=== PATIENT | female | born 1980 | race African-American/Black ===

== ENCOUNTER → 2020-09-28 02:05 | Outpatient (CLI) | payer OTHER, SELFPAY ==
[2020-09-28 20:22] LABS: SARS-CoV-2 RNA PCR Negative
== END ==
PROVIDERS: PCP Family Medicine; Visit Provider Internal Medicine Gastroenterology
DX: Z01.812 Encounter for preprocedural laboratory examination (principal); Z20.822 Contact with and (suspected) exposure to COVID-19
CPT/HCPCS: C9803; U0003; U0005

== ENCOUNTER 2020-10-01 01:23 | Day surgery (SDC) | payer OTHER, SELFPAY ==
[2020-09-20 12:18] VITALS: BMI 20.8
[2020-10-01 08:27] VITALS: BP 92/65; PULSE 94; RESP 18; TEMP 36.1; O2SAT 100
[2020-10-01] MEDS: LACTATED RINGERS 1,000 ML 150 ML IV CONT (08:36)
--- NOTE | 2020-10-01 08:38 | WPDANESEPPF ---
Anes - Initial Pre Proc Eval Procedure: Operation Date: 10/01/20 09:30 Proposed Procedures p Colonoscopy - Mike Drake MD Date/Time: 10/01/20 08:38 Surgeon: iMke Drake MD Pre Op Diagnosis: Melena, Abdomen Pain Patient Data Age: 40 Gender: F Height: 5 ft 10 in Weight: 65.3 kg Last Vital Signs Temp 36.1 C L 10/01/20 08:27 Pulse 94 10/01/20 08:27 Resp 18 10/01/20 08:27 BP 92/65 L 10/01/20 08:27 Pulse Ox 100 10/01/20 08:27 Allergies Allergy/AdvReac Type Severity Reaction Status Date / Time No Known Allergies Allergy Unknown Verified 10/01/20 08:12 Home Medications Medication Instructions Recorded Confirmed Type No Home Medications 09/20/20 09/20/20 History Patient hx anesthesia problems: none Family hx anesthesia problems: none PMFSH Past Medical History Medical History Abdominal pain Tobacco abuse Family History Family History Sibling Anemia Grandparent Carcinoma Diabetes mellitus Hypertension Father Heart disease Hypertension Mother Heart disease Hypertension Social History Social History Years smoked: 20 Smoking status: Current every day smoker Tobacco type: cigarettes Alcohol intake: never Substance use: current Substance use type: marijuana Other substance usage details: uses every other day Last use: 09/17/20 Living arrangements: with family Spiritual care concerns: No Anes - Eval Final PreProcedure Day of Procedure 10/01/20 08:38 Patient weight: normal Heart: regular rate and rhythm Lungs: clear to auscultation Airway: Mallampati scale class II Neurological: alert and oriented Last oral intake: >/= 8 hours ASA classification: III Emergent: no Anesthetic plan: proceed Anesthesia type and monitoring: general GIVS and standard monitoring Informed Consent: The patient's anesthetic plan and its attendant risks and benefits were discussed with the patient/family/POA. Questions were solicited and answers provided to the satisfaction of the patient/family/POA.
--- NOTE | 2020-10-01 09:09 | WPDHPUPDATE1 ---
History and Physical Update Update Date/Time: 10/01/20 09:09 History and Physical has been reviewed, including an updated exam of the patient. There are NO changes in the patient's condition. Risks, benefits, and alternatives have been discussed and questions answered. Patient agrees to proceed with procedure.
[2020-10-01 09:37] VITALS: BP 102/68; PULSE 80; RESP 32; O2SAT 100
[2020-10-01 09:45] VITALS: BP 105/73; PULSE 92; RESP 25; O2SAT 100
[2020-10-01 09:55] VITALS: BP 103/70; PULSE 76; RESP 25; O2SAT 100
== END 2020-10-01 10:05 | disposition home or self-care (01) ==
PROVIDERS: PCP Family Medicine; Visit Provider Internal Medicine Gastroenterology
PROC: 0DJD8ZZ Inspection of Lower Intestinal Tract, Via Natural or Artificial Opening Endoscopic (ICD-10-PCS; CPT 45378; principal; 2020-10-01 09:30)
DX: K62.5 Hemorrhage of anus and rectum (principal); D12.5 Benign neoplasm of sigmoid colon; F17.210 Nicotine dependence, cigarettes, uncomplicated; F12.90 Cannabis use, unspecified, uncomplicated; R10.32 Left lower quadrant pain
CPT/HCPCS: 45385; 45381; 88305; J2704; J7120